=== PATIENT | male | born 1940 | race Caucasian/White ===

== ENCOUNTER 2020-04-15 23:12 | Observation (INO) | payer MEDICARE ==
[~2020-04-15] VITALS: Ht 162.6 cm; Wt 74.0 kg
--- NOTE | 2020-04-15 23:37 | REPVR ---
PROCEDURE INFORMATION: Exam: CT Head Without Contrast Exam date and time: 04/15/2020 11:25 PM Age: 79 years old Clinical indication: Weakness, extremity; Additional info: CVA TECHNIQUE: Imaging protocol: Computed tomography of the head without contrast. Radiation optimization: All CT scans at this facility use at least one of these dose optimization techniques: automated exposure control; mA and/or kV adjustment per patient size (includes targeted exams where dose is matched to clinical indication); or iterative reconstruction. Other technique: STROKE PROTOCOL was implemented. COMPARISON: No relevant prior studies available. FINDINGS: Brain: There are global involutional changes of the brain which are in keeping with the patient's age. Periventricular hypodensities are nonspecific but most likely reflect chronic microvascular ischemic disease. There is no evidence of intracranial hemorrhage. No abnormal extra-axial fluid collections are identified. No mass effect or midline shift is seen. Smith-white differentiation is preserved throughout. Cerebral ventricles: The ventricles are prominent but do not appear disproportionate to the sulci. Bones/joints: No calvarial fracture. Paranasal sinuses: There is a small air-fluid level in the right maxillary antrum. Consider acute bacterial sinusitis. Mastoid air cells: There is no mastoid effusion detected. Vasculature: Atherosclerotic vascular disease is noted at the level of the skull base. Soft tissues: Unremarkable. IMPRESSION: 1. No acute intracranial hemorrhage, mass or midline shift. 2. Involutional changes of the brain in keeping with the patient's age, with findings of chronic microvascular ischemic disease. 3. Consider acute bacterial sinusitis. ASSESSMENT: ASPECTS ([place] Stroke Program Early CT Score) is 10. Electronically signed by: Kalani Wiley On 04/15/2020 23:37:24 PM
[2020-04-16 00:45] LABS: BASO % 0.5 % (0.0-1.0); EOS % 0.5 % (0.0-3.0); HEMATOCRIT 37.3 % (42.0-52.0); LYMPH # 1.3 10^3/uL (1.5-5.0); LYMPH % 14.6 % (24.0-44.0); MEAN CORPUSCULAR HEMOGLOBIN 29.3 pg (27.0-33.0); MEAN CORPUSCULAR HGB CONC 32.2 g/dl (32.0-36.5); MONO # 0.7 10^3/uL (0.0-0.8); MONO % 7.7 % (0.0-8.0); NEUTROPHILS # 6.7 10^3/uL (1.5-8.5); NEUTROPHILS % 75.9 % (36.0-66.0); PLATELET COUNT, AUTOMATED 295 10^3/uL (150-450); WHITE BLOOD COUNT 8.8 10^3/uL (4.0-10.0)
--- NOTE | 2020-04-16 00:58 | REPVR ---
PROCEDURE INFORMATION: Exam: XR Chest, 1 View Exam date and time: 04/16/2020 12:31 AM Age: 79 years old Clinical indication: Other: CVA TECHNIQUE: Imaging protocol: XR of the chest Views: 1 view. COMPARISON: No relevant prior studies available. FINDINGS: Lungs: Unremarkable. No consolidation. Pleural spaces: There is a suspected right pneumothorax. Correlate with chest CT to confirm. No pleural effusion is seen. Heart/Mediastinum: Unremarkable. No cardiomegaly. Bones/joints: Unremarkable. IMPRESSION: Apparent right pneumothorax. Correlate with chest CT to confirm. Electronically signed by: Kalani Wiley On 04/16/2020 00:58:49 AM
[2020-04-16 01:20] LABS: BLOOD UREA NITROGEN 33 MG/DL (7-18); CALCIUM LEVEL 9.1 MG/DL (8.8-10.2); CARBON DIOXIDE LEVEL 26 MEQ/L (21-32); CHLORIDE LEVEL 101 MEQ/L (98-107); CK-MB VALUE MASS 1.7 NG/ML (<3.6); CPK CREATINE PHOSPHOKINASE 82 U/L (39-308); CREATININE FOR GFR 1.74 MG/DL (0.70-1.30); GLOMERULAR FILTRATION RATE 40.7 (>42); GLUCOSE, FASTING 124 MG/DL (70-100); MB/CK RELATIVE INDEX 2.07 (< OR =4); POTASSIUM SERUM 4.1 MEQ/L (3.5-5.1); SODIUM LEVEL 134 MEQ/L (136-145); TROPONIN I < 0.02 NG/ML (< 0.10)
[2020-04-16 01:23] LABS: RSV AMPLIFICATION NEGATIVE (NEGATIVE)
--- NOTE | 2020-04-16 02:24 | REPVR ---
PROCEDURE INFORMATION: Exam: CT Chest Without Contrast; Diagnostic Exam date and time: 04/16/2020 1:58 AM Age: 79 years old Clinical indication: Abnormal findings; Abnormal radiologic exam of lung or chest; Additional info: Ptx on cxr TECHNIQUE: Imaging protocol: Diagnostic computed tomography of the chest without contrast. 3D rendering (Not supervised by radiologist): MIP and/or 3D reconstructed images were created by the technologist. Radiation optimization: All CT scans at this facility use at least one of these dose optimization techniques: automated exposure control; mA and/or kV adjustment per patient size (includes targeted exams where dose is matched to clinical indication); or iterative reconstruction. COMPARISON: CR PORTABLE CHEST X-RAY 04/16/2020 12:16 AM FINDINGS: Lungs: Slight diffuse interstitial coarsening of the lungs with minimal left lower lobe infiltrate or atelectasis posteriorly. Numerous noncalcified bilateral pulmonary nodules measuring up to 11 mm. Pleural spaces: Unremarkable. No pneumothorax. No pleural effusion. Heart: Coronary artery calcifications are present. Pulmonary arteries: The main pulmonary artery measures 26 mm. Aorta: The ascending thoracic aorta measures 32 mm. Lymph nodes: Anterior mediastinal node anterior to the ascending thoracic aorta measuring 13 x 19 x 23 mm. Liver: Heterogeneous liver with suggestion of large masses in the right hepatic lobe. Bones/joints: Slight anterior wedge configuration of several mid to lower thoracic segments which appear to be chronic. No acute fracture. Soft tissues: Unremarkable. IMPRESSION: 1. Multiple noncalcified bilateral pulmonary nodules which are suspicious for metastatic disease.For patients at low risk (minimal or absent history of smoking and of other known risk factors), recommend CT Chest at 3-6 months, then consider CT Chest at 18-24 months. For patients at high risk (history of smoking or of other known risk factors), recommend CT Chest at 3-6 months, then CT Chest at 18-24 months. (Reference: Marguerite) 2. Heterogeneous liver with suggestion of large right hepatic masses which may reflect metastatic disease although primary hepatic mass is not excluded. 3. Slight pulmonary interstitial coarsening with minimal left lower lobe infiltrate or atelectasis. 4. Borderline anterior mediastinal node. REFERENCES: Marguerite Mehta et al. Guidelines for Management of Incidental Pulmonary Nodules Detected on CT Images: From the Fleischner Society 2017. Radiology. 2017;284(1):228-243. Electronically signed by: Leo Luke On 04/16/2020 02:23:56 AM
[2020-04-16] MEDS ORDERED: REDCAP13 PO (02:30)
[2020-04-16] MEDS ORDERED: BACL10TA8 PO (02:30)
[2020-04-16] MEDS ORDERED: ATEN50TA2 PO (02:30)
[2020-04-16] MEDS ORDERED: bumex PO (02:30)
[2020-04-16] MEDS ORDERED: CO Q1CAP2 PO (02:30)
[2020-04-16] MEDS ORDERED: LOSA100T50 PO (02:30)
[2020-04-16] MEDS ORDERED: GABA-1171 PO (02:30)
[2020-04-16] MEDS ORDERED: VITMTA PO (02:30)
[2020-04-16] MEDS ORDERED: BUME1TAB3 PO (04:13)
--- OUTSIDE RECORDS SUMMARY | 2020-04-16 04:40 | CCD | Continuity of Care Document ---
Author Author Chito CANCINO DPM-PC Organization Unknown Address [address] [place] [address] Phone [phone] Care Team Providers Care Mill Attendant Name Role Phone Aquilino Champagne MD AUTM [phone] Problems Active Problems Provider Date Atherosclerosis of arteries of the extremities JENN KimbleM-pc Onset: 07/21/2017 Onychomycosis JENN LojaMErinpc Onset: 07/21/2017 Pain in limb Kesha Loja Onset: 07/21/2017 Hammer toe GRISELDA Lojapc Onset: 07/21/2017 Callosity between toes GRISELDA Lojapc Onset: 018 Hallux valgus (acquired), unspecified foot Tee Loja-pc Onset: 07/21/2017 Peripheral vascular disease GRISELDA Lojapc Onset: Social History Type Date Description Comments Sex Unknown Tobacco Use Start: Unknown Never Smoked Cigarettes Tobacco Use Start: Unknown Never Smoked Cigars Tobacco Use Start: Unknown Never Smoked A Pipe Smoking Status Reviewed: 12/11/19 Never Smoked A Pipe Tobacco Use Start: Unknown Never Used Smokeless Tobacco ETOH Use Occasionally consumes alcohol Tobacco Use Start: Unknown End: Unknown Patient is a former smoker Allergies, Adverse Reactions, Alerts Active Allergies Reaction Severity Comments Date Sulfa Antibiotics Urticaria 07/21/2017 Hydrochlorothiazide / Lisinopril Urticaria 07/21/2017 Medications Active Medications SIG Qnty Indications Ordering Provide r Date Lac-Hydrin Twelve 12% Lotion apply to the feet twice a day daily 1200gm JENN LojaM-pc Multi-Vitamin Tablets 1 by mouth every day Unknown Losartan Potassium 100mg Tablets Take One AT Bedtime Unknown Baclofen 10mg Tablets take 1 tablet by mouth once daily at bedtime Unknown Gabapentin 100mg Capsules 2 tablets twice a day Unknown Atenolol 50mg Tablets 1 by mo uth bid Unknown Bumex 1mg Tablets 1 by nick th every day Unknown HM Coq-10 200mg Capsules Unknown Red Yeast Rice 600mg Capsules Unknown Immunizations Description No Information Available Vital Signs Date Vital Result Comment 07/20/2019 11:00am Weight 160.00 lb Weight 72.576 kg 07/21/2018 10:06am Weight 172.00 lb Weight 78.019 kg Height 66 inches 5'6" BMI (Body Mass Index) 27.8 kg/m2 BSA (Body Surface Area) 1.88 m2 Results Description No Information Available Procedures Date Code Description Status 12/11/2019 75747 Debridement Nails Any Method 6 O r More Completed 12/11/2019 91683 Pare Hyperkeratotic Lesion, 2-4 Completed 09/28/2019 21352 Debridement Nails Any Method 6 O r More Completed 09/28/2019 91435 Pare Hyperkeratotic Lesion, 2-4 Completed Medical Devices Description No Information Available Encounters Description No Information Available Assessments Date Code Description Provider 12/11/2019 I70.203 Unspecified atherosc lerosis of n[place] arteries of extremities, bilateral legs Radha Cancino DPM-ghazala 12/11/2019 M20.10 Hallux valgus (acquired), unspec ified foot Kesha Loja 12/11/2019 M20.40 Other hammer toe(s) (acquired), unspecified foot Kesha Loja 12/11/2019 B35.1 Tinea unguium Radha Cancino DPM- 12/11/2019 L84 Corns and callosities Kesha Conroy 09/28/2019 I70.203 Unspecified atherosc lerosis of nikolski arteries of extremities, bilateral legs GRISELDA Lojapc 09/28/2019 M20.10 Hallux valgus (acquired), unspec ified foot Kesha Loja 09/28/2019 M20.40 Other hammer toe(s) (acquired), unspecified foot Kesha Loja 09/28/2019 B35.1 Tinea unguium Kesha Loja 09/28/2019 L84 Corns and callosities Kesha Conroy Plan of Treatment Future Appointment(s):* 05/28/2020 11:00 am - Kesha Loja at [facility] Podiatry Functional Status Description No Information Available Mental Status Description No Information Available Referrals Description No Information Available
--- OUTSIDE RECORDS SUMMARY | 2020-04-16 04:40 | CCD | Continuity of Care Document ---
Author Author Chito FELIX Organization Unknown Address [address] [place] [id number] Phone [phone] Care Team Providers Care Ferryboat Helper Name Role Phone Giuseppe FELIX AUTM [phone] Social History Type Date Description Comments Sex Unknown Allergies, Adverse Reactions, Alerts Active Allergies Reaction Severity Comments Date Sulfa Antibiotics 03/18/2020 Statins 03/18/2020 Lisinopril 03/18/2020 Medications Active Medications SIG Qnty Indications Ordering Provide r Date Coq10 Maximum Strength 400mg Capsules Aquilino Champagne M[facility] 03/18/2020 Red Yeast Rice Extract 600mg Capsules Aquilino Champagne M[facility] 03/18/2020 Baclofen 10mg Tablets Take One Tablet By Mouth Daily 90tabs Aquilino Champagne [facility] 000 Atenolol 50mg Tablets Take One Tablet By Mouth Twice Daily 180tabs Aquilino Champagne M[facility] Gabapentin 100mg Capsules take two capsules by mouth twice a day 120caps Aquilino Champagne M[facility] Losartan Potassium 100mg Tablets [facility] Bumetanide 1mg Tablets TK 1 T PO qd Unknown Vital Signs Date Vital Result Comment 03/18/2020 1:35pm Height 66 inches 5'6" Weight 152.00 lb BMI (Body Mass Index) 24.5 kg/m2 Body Temperature 97.4 F BP Systolic 143 mmHg BP Diastolic 78 mmHg Heart Rate 63 /min O2 % BldC Oximetry 93 % Encounters Type Date Location Provider Dx Diagnosis Office Visit 03/18/2020 1:30p [facility] Aquilino Champagne M[facility] I11.9 Hypertensive heart disease without heart failure E78.5 Hyperlipidemia, unspecified G62.9 Polyneuropathy, unspecified G45.9 Transient cerebral ischemic attack, unspecified Office Visit 12/11/2019 11:30a [facility] Aquilino Champagne M[facility] I11.9 Hypertensive heart disease without heart failure I69.30 Unspecified sequelae of cere bral infarction G62.9 Polyneuropathy, unspecified Assessments Date Code Description Provider 03/18/2020 I11.9 Hypertensive heart disease witho ma heart failure Aquilino [facility]agne [facility] 03/18/2020 E78.5 Hyperlipidemia, unspecified Meli Champagne M[facility] 03/18/2020 G62.9 Polyneuropathy, unspecified Meli Champagne [facility] 03/18/2020 G45.9 Transient cerebral ischemic richa ck, unspecified Aquilino Champagne [facility] 12/11/2019 I11.9 Hypertensive heart disease witho ma heart failure Aquilino Champagne [facility] 12/11/2019 I69.30 Unspecified sequelae of cerebral infarction Aquilino Champagne [facility] 12/11/2019 G62.9 Polyneuropathy, unspecified Meli Champagne [facility] 09/28/2019 I11.9 Hypertensive heart disease witho ut heart failure Aquilino Champagne [facility] 09/28/2019 E78.5 Hyperlipidemia, unspecified Meli Champagne [facility] 09/28/2019 M54.5 Low back pain [facility] Plan of Treatment Future Appointment(s):* 05/28/2020 11:30 am - Aquilino Champagne M[facility] at [facility]
--- OUTSIDE RECORDS SUMMARY | 2020-04-16 04:40 | CCD | Continuity of Care Document ---
Author Author Chito FELIX Organization Unknown Address [address] [place] [id number] Phone [phone] Care Team Providers Care Farm Contractor Name Role Phone Giuseppe FELIX AUTM [phone] Social History Type Date Description Comments Sex [...] M.D. , P.C[facility] Losartan Potassium 100mg Tablets [facility] Bumetanide 1mg Tablets TK 1 T PO qd Unknown Vital Signs Date Vital Result Comment 03/18/2020 1:35pm Height 66 inches 5'6" Weight 152.00 lb BMI (Body Mass Index) 24.5 kg/m2 Body Temperature 97.4 F BP Systolic 143 mmHg BP Diastolic 78 mmHg Heart Rate 63 /min O2 % BldC Oximetry 93 % Encounters Type Date Location Provider Dx Diagnosis Office Visit 12/11/2019 11:30a [facility] Aquilino Champagne M[facility] I11.9 Hypertensive heart disease without heart failure I69.30 Unspecified sequelae of cere bral infarction G62.9 Polyneuropathy, unspecified Assessments Date Code Description Provider 12/11/2019 I11.9 Hypertensive heart disease witho mi heart failure Aquilino Champagne [facility] 12/11/2019 [...] am - Aquilino Champagne [facility] at [facility]
--- OUTSIDE RECORDS SUMMARY | 2020-04-16 04:41 | CCD ---
Author Author [facility] Organization [facility] Address Unknown Phone Unavailable Care Team Providers Care Data Capture Specialist Name Role Phone DEUCE CHAMPAGNE MD Unavailable Unavailable ORIANADEUCE MD Unavailable Unavailable DEUCE CHAMPAGNE MD Unavailable Unavailable ORIANADEUCE BRADLEY MD Unavailable Unavailable DEUCE CHAMPAGNE MD Unavailable Unavailable ORIANADEUCE Álvarez MD Unavailable Unavailable DEUCE CHAMPAGNE MD Unavailable Unavailable DEUCE CHAMPAGNE MD Unavailable Unavailable ORIANADEUCE Álvarez MD Unavailable Unavailable DEUCE CHAMPAGNE MD Unavailable Unavailable ORIANADEUCE MD Unavailable Unavailable ORIANAROBYN BRADLEYBOSAMEER العلي MD Unavailable Unavailable DEUCE CHAMPAGNE MD Unavailable Unavailable DEUCE CHAMPAGNE MD Unavailable Unavailable DEUCE CHAMPAGNE MD Unavailable Unavailable ORIANADEUCE BRADLEY MD Unavailable Unavailable ORIANADEUCE BRADLEY MD Unavailable Unavailable ORIANADEUCE BRADLEY MD Unavailable Unavailable ORIANADEUCE BRADLEY MD Unavailable Unavailable ORIANA, MAQBOOL ZOHRA MD Unavailable Unavailable ORIANA, MAQBOOL ZOHRA MD Unavailable Unavailable ORIANA, MAQBOOL ZOHRA MD Unavailable Unavailable ORIANA, MAQBOOL ZOHRA MD Unavailable Unavailable ORIANA, MAQBOOL ZOHRA MD Unavailable Unavailable ORIANA, MAQBOOL ZOHRA MD Unavailable Unavailable ORIANA, MAQBOOL ZOHRA MD Unavailable Unavailable ORIANA, MAQBOOL ZOHRA MD Unavailable Unavailable ORIANA, MAQBOOL ZOHRA MD Unavailable Unavailable ORIANA, MAQBOOL ZOHRA MD Unavailable Unavailable ORIANA, MAQBOOL ZOHRA MD Unavailable Unavailable ORIANA, MAQBOOL ZOHRA MD Unavailable Unavailable ORIANA, MAQBOOL ZOHRA MD Unavailable Unavailable ORIANA, MAQBOOL ZOHRA MD Unavailable Unavailable ORIANA, MAQBOOL ZOHRA MD Unavailable Unavailable ORIANA, MAQBOOL ZOHRA MD Unavailable Unavailable ORIANA, MAQBOOL ZOHRA MD Unavailable Unavailable ORIANA, MAQBOOL ZOHRA MD Unavailable Unavailable ORIANA, MAQBOOL ZOHRA MD Unavailable Unavailable ORIANA, MAQBOOL ZOHRA MD Unavailable Unavailable ORIANA, MAQBOOL ZOHRA MD Unavailable Unavailable ORIANA, MAQBOOL ZOHRA MD Unavailable Unavailable ORIANA, MAQBOOL ZOHRA MD Unavailable Unavailable ORIANA, MAQBOOL ZOHRA MD Unavailable Unavailable ORIANA, MAQBOOL ZOHRA MD Unavailable Unavailable ORIANA, MAQBOOL ZOHRA MD Unavailable Unavailable ORIANA, MAQBOOL ZOHRA MD Unavailable Unavailable ORIANA, MAQBOOL ZOHRA MD Unavailable Unavailable ORIANA, MAQBOOL ZOHRA MD Unavailable Unavailable ORIANA, MAQBOOL ZOHRA MD Unavailable Unavailable ORIANA, MAQBOOL ZOHRA MD Unavailable Unavailable ORIANA, MAQBOOL ZOHRA MD Unavailable Unavailable ORIANA, MAQBOOL ZOHRA MD Unavailable Unavailable ORIANA, MAQBOOL ZOHRA MD Unavailable Unavailable ORIANA, MAQBOOL ZOHRA MD Unavailable Unavailable ORIANA, MAQBOOL ZOHRA MD Unavailable Unavailable ORIANA, MAQBOOL ZOHRA MD Unavailable Unavailable ORIANA, MAQBOOL ZOHRA MD Unavailable Unavailable ORIANA, MAQBOOL ZOHRA MD Unavailable Unavailable ORIANA, MAQBOOL ZOHRA MD Unavailable Unavailable ORIANA, MAQBOOL ZOHRA MD Unavailable Unavailable ORIANA, MAQBOOL ZOHRA MD Unavailable Unavailable ORIANA, MAQBOOL ZOHRA MD Unavailable Unavailable ORIANA, MAQBOOL ZOHRA MD Unavailable Unavailable ORIANA, MAQBOOL ZOHRA MD Unavailable Unavailable ORIANA, MAQBOOL ZOHRA MD Unavailable Unavailable ORIANA, MAQBOOL ZOHRA MD Unavailable Unavailable ORIANA, MAQBOOL ZOHRA MD Unavailable Unavailable ORIANA, MAQBOOL ZOHRA MD Unavailable Unavailable ORIANA, MAQBOOL ZOHRA MD Unavailable Unavailable ORIANA, MAQBOOL ZOHRA MD Unavailable Unavailable ORIANA, MAQBOOL ZORHA MD Unavailable Unavailable ORIANA, MAQBOOL ZOHRA MD Unavailable Unavailable ORIANA, MAQBOOL ZOHRA MD Unavailable Unavailable ORIANA, MAQBOOL ZOHRA MD Unavailable Unavailable BARAK, J RADHA DPM PC Unavailable Unavailable BARAK, J RADHA DPM [facility] Unavailable Unavailable BARAK, J RADHA DPM [facility] Unavailable Unavailable BARAK, J RADHA D[facility] Unavailable Unavailable BARAK, J RADHA [facility] Unavailable Unavailable BARAK, J RADHA [facility] Unavailable Unavailable BARAK, J RADHA [facility] Unavailable Unavailable BARAK, J RADHA [facility] Unavailable Unavailable BARAK, J RADHA [facility] Unavailable Unavailable BARAK, J RADHA [facility] Unavailable Unavailable BARAK, J RADHA [facility] Unavailable Unavailable BARAK, J RADHA [facility] Unavailable Unavailable BARAK, J RADHA [facility] Unavailable Unavailable BARAK, J RADHA [facility] Unavailable Unavailable BARAK, J RADHA [facility] Unavailable Unavailable BARAK, J RADHA [facility] Unavailable Unavailable BARAK, J RADHA [facility] Unavailable Unavailable BARAK, J RADHA [facility] Unavailable Unavailable BARAK, J RADHA [facility] Unavailable Unavailable BARAK, J RADHA [facility] Unavailable Unavailable BARAK, J RADHA [facility] Unavailable Unavailable BARAK, J RADHA [facility] Unavailable Unavailable BARAK, J RADHA [facility] Unavailable Unavailable BARAK, J RAD[facility] Unavailable Unavailable BARAK, J RAD[facility] Unavailable Unavailable BARAK, J RADHA [facility] Unavailable Unavailable ORIANA, MAQBOOL ZOHRA MD Unavailable Unavailable ORIANA, MAQBOOL ZOHRA MD Unavailable Unavailable ORIANA, MAQBOOL ZOHRA MD Unavailable Unavailable ORIANA, MAQBOOL ZOHRA MD Unavailable Unavailable ORIANA, MAQBOOL ZOHRA MD Unavailable Unavailable ORIANA, MAQBOOL ZOHRA MD Unavailable Unavailable ORIANA, MAQBOOL ZOHRA MD Unavailable Unavailable ORIANA, MAQBOOL ZOHRA MD Unavailable Unavailable ORIANA, MAQBOOL ZOHRA MD Unavailable Unavailable ORIANA, MAQBOOL ZOHRA MD Unavailable Unavailable ORIANA, MAQBOOL ZOHRA MD Unavailable Unavailable ORIANA, MAQBOOL ZOHRA MD Unavailable Unavailable ORIANA, MAQBOOL ZOHRA MD Unavailable Unavailable ORIANA, MAQBOOL ZOHRA MD Unavailable Unavailable ORIANA, MAQBOOL ZOHRA MD Unavailable Unavailable ORIANA, MAQBOOL ZOHRA MD Unavailable Unavailable ORIANA, MAQBOOL ZOHRA MD Unavailable Unavailable ORIANA, MAQBOOL ZOHRA MD Unavailable Unavailable ORIANA, MAQBOOL ZOHRA MD Unavailable Unavailable ORIANA, MAQBOOL ZOHRA MD Unavailable Unavailable ORIANA, MAQBOOL ZOHRA MD Unavailable Unavailable ORIANA, MAQBOOL ZOHRA MD Unavailable Unavailable ORIANA, MAQBOOL ZOHRA MD Unavailable Unavailable ORIANA, MAQBOOL ZOHRA MD Unavailable Unavailable ORIANA, MAQBOOL ZOHRA MD Unavailable Unavailable ORIANA, MAQBOOL ZOHRA MD Unavailable Unavailable ORIANA, MAQBOOL ZOHRA MD Unavailable Unavailable ORIANA, MAQBOOL ZOHRA MD Unavailable Unavailable ORIANA, MAQBOOL ZOHRA MD Unavailable Unavailable ORIANA, MAQBOOL ZOHRA MD Unavailable Unavailable ORIANA, MAQBOOL ZOHRA MD Unavailable Unavailable ORIANA, MAQBOOL ZOHRA MD Unavailable Unavailable ORIANA, MAQBOOL ZOHRA MD Unavailable Unavailable ORIANA, MAQBOOL ZOHRA MD Unavailable Unavailable ORIANA, MAQBOOL ZOHRA MD Unavailable Unavailable ORIANA, MAQBOOL ZOHRA MD Unavailable Unavailable ORIANA, MAQBOOL ZOHRA MD Unavailable Unavailable ORIANA, MAQBOOL ZOHRA MD Unavailable Unavailable ORIANA, MAQBOOL ZOHRA MD Unavailable Unavailable ORIANA, MAQBOOL ZOHRA MD Unavailable Unavailable ORIANA, MAQBOOL ZOHRA MD Unavailable Unavailable ORIANA, MAQBOOL ZOHRA MD Unavailable Unavailable ORIANA, MAQBOOL ZOHRA MD Unavailable Unavailable ORIANA, MAQBOOL ZOHRA MD Unavailable Unavailable ORIANA, MAQBOOL ZOHRA MD Unavailable Unavailable ORIANA, MAQBOOL ZOHRA MD Unavailable Unavailable ORIANA, MAQBOOL ZOHRA MD Unavailable Unavailable ORIANA, MAQBOOL ZOHRA MD Unavailable Unavailable ORIANA, MAQBOOL ZOHRA MD Unavailable Unavailable ORIANA, MAQBOOL ZOHRA MD Unavailable Unavailable ORIANA, MAQBOOL ZOHRA MD Unavailable Unavailable ORIANA, MAQBOOL ZOHRA MD Unavailable Unavailable ORIANA, MAQBOOL ZOHRA MD Unavailable Unavailable ORIANA, MAQBOOL ZOHRA MD Unavailable Unavailable ORIANA, MAQBOOL ZOHRA MD Unavailable Unavailable ORIANA, MAQBOOL ZOHRA MD Unavailable Unavailable ORIANA, MAQBOOL ZOHRA MD Unavailable Unavailable ORIANA, MAQBOOL ZOHRA MD Unavailable Unavailable ORIANA, MAQBOOL ZOHRA MD Unavailable Unavailable ORIANA, MAQBOOL ZOHRA MD Unavailable Unavailable ORIANA, MAQBOOL ZOHRA MD Unavailable Unavailable ORIANA, MAQBOOL ZOHRA MD Unavailable Unavailable ORIANA, MAQBOOL ZOHRA MD Unavailable Unavailable ORIANA, MAQBOOL ZOHRA MD Unavailable Unavailable ORIANA, MAQBOOL ZOHRA MD Unavailable Unavailable ORIANA, MAQBOOL ZOHRA MD Unavailable Unavailable ORIANA, MAQBOOL ZOHRA MD Unavailable Unavailable ORIANA, MAQBOOL ZOHRA MD Unavailable Unavailable ORIANA, MAQBOOL ZOHRA MD Unavailable Unavailable ORIANA, MAQBOOL ZOHRA MD Unavailable Unavailable ORIANA, MAQBOOL ZOHRA MD Unavailable Unavailable ORIANA, MAQBOOL ZOHRA MD Unavailable Unavailable ORIANA, MAQBOOL ZOHRA MD Unavailable Unavailable ORIANA, MAQBOOL ZOHRA MD Unavailable Unavailable Re-disclosure Warning The records that you are about to access may contain information from federally-assisted alcohol or drug abuse programs. If such information is present, then the following federally mandated warning applies: This information has been disclosed to you from records protected by federal confidentiality rules (42 CFR part 2). The federal rules prohibit you from making any further disclosure of this information unless further disclosure is expressly permitted by the written consent of the person to whom it pertains or as otherwise permitted by 42 CFR part 2. A general authorization for the release of medical or other information is NOT sufficient for this purpose. The Federal rules restrict any use of the information to criminally investigate or prosecute any alcohol or drug abuse patient.The records that you are about to access may contain highly sensitive health information, the redisclosure of which is protected by Article 27-F of the [facility] Public Health law. If you continue you may have access to information: Regarding HIV / AIDS; Provided by facilities licensed or operated by the [facility] Office of Mental Health; or Provided by the [facility] Office for People With Developmental Disabilities. If such information is present, then the following [facility] mandated warning applies: This information has been disclosed to you from confidential records which are protected by state law. State law prohibits you from making any further disclosure of this information without the specific written consent of the person to whom it pertains, or as otherwise permitted by law. Any unauthorized further disclosure in violation of state law may result in a fine or long term sentence or both. A general authorization for the release of medical or other information is NOT sufficient authorization for further disc losure. Allergies and Adverse Reactions Type Description Substance Reaction Status Data Source(s ) Drug allergy LISINOPRIL LISINOPRIL RASH [facility] CLASS SULFA (sulfonamide) SULFA (sulfonamide) RASH, ENTIRE BODY [facility] Encounters Encounter Providers Location Date Indications Data Source(s ) Outpatient Attender: ZOHRA CHAMPAGNE MD [facility] 03/18 12:30:00 PM EST [facility] (Zohra Champagne MD) Outpatient Attender: RADHA CANCINO DPM PCConsultant: ZOHRA CHAMPAGNE MD 03/18/2020 11:09:00 AM EST - 03/18/2020 11:09:00 AM [facility] Outpatient Attender: ZOHRA CHAMPAGNE MD [facility] 12/10 11:30:00 AM EDT [facility] (Zohra Champagne MD) Outpatient Attender: RADHA CANCINO DPM PCConsultant: ZOHRA CHAMPAGNE MD 12/11/2019 10:39:00 AM EDT - 12/11/2019 10:39:00 AM [facility] Outpatient Attender: RADHA CANCINO DPM PCConsultant: ZOHRA CHAMPAGNE MD 09/28/2019 10:29:00 AM EDT - 09/28/2019 10:29:00 AM [facility] Outpatient Attender: RADHA CANCINO DPM PCConsultant: ZOHRA CHAMPAGNE MD 07/20/2019 10:58:00 AM EDT - 07/20/2019 10:58:00 AM [facility] Outpatient Attender: RADHA CANCINO DPM PCConsultant: ZOHRA CHAMPAGNE MD 05/11/2019 10:27:00 AM EDT - 05/11/2019 10:27:00 AM [facility] Outpatient Attender: RADHA BARAJASM PCConsultant: ZOHRA CHAMPAGNE MD 02/16/2019 10:25:00 AM EST - 02/16/2019 10:25:00 AM [facility] Outpatient Attender: ZOHRA CHAMPAGNE MDRef errer: ZOHRA CHAMPAGNE MDConsultant: ZOHRA CHAMPAGNE MD 01/23/2019 10:09:00 AM EST - 01/23/2019 10:19:00 AM [facility] Medications Medication Brand Name Start Date Product Form Dose Route Admi nistrative Instructions Pharmacy Instructions Status Indications Reaction Description Data Source(s) coenzyme Q10 400 MG Oral Capsule Coq10 Maximum Strength 03/01 12:00:00 AM EST active [facility] (Eugenie Champagne MD) red yeast rice 600 MG Oral Capsule Red Yeast Rice Extract 12:00:00 AM EST active [facility] (Eugenie Champagne MD) Insurance Providers Payer name Policy type / Coverage type Policy ID Covered green party ID Covered green party's relationship to caballero Policy Cab[employer]ero Plan Information [employer] [id number] SP [id number] [place] [id number] 18 [id number] WELLCARE -O/P [id number] 18 [id number] WELLCARE - PHYSICIAN [id number] 18 [id number] MEDICARE PART A [facility] [id number] 18 [id number] [employer] [place] [id number] 18 [id number] [employer] -O/P [id number] 18 [id number] MEDICARE PART A [place] [id number] 18 [id number] RALF PROG [employer] G [id number] Self [id number] [employer] -SWING [id number] 18 [id number] Problems, Conditions, and Diagnoses Code Display Name Description Problem Type Effective Dates Data Source(s) M2040 Other hammer toe(s) (acquired), unspecif ied foot Other hammer toe(s) (acquired), unspecified foot Diagnosis 12/11/2019 10:39:00 AM EDT [facility] M2010 Hallux valgus (acquired), unspecified fo ot Hallux valgus (acquired), unspecified foot Diagnosis 12/11/2019 10:39:00 AM EDT [facility] L84 Corns and callosities Corns and callosities Diagnosis 12/11/2019 10:39:00 AM EDT [facility] B351 Tinea unguium Tinea unguium Diagnosis 12/11/2019 10:39:00 AM EDT [facility] 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, bilateral legs Unspecified atherosclerosis of [place] ar teries of extremities, bilateral legs Diagnosis 12/11/2019 10:39:00 AM [facility] [id number] Pain in left foot Pain in left foot Diagnosis 02/16/2019 10:25:00 AM [facility] I739 Peripheral vascular disease, unspecified Peripheral vascular disease, unspecified Diagnosis 02/16/2019 10:25:00 AM [facility] Surgeries/Procedures Procedure Description Date Indications Data Source(s) Pare Hyperkeratotic Lesion, 2-4 12/11/2019 12:00:00 AM EDT [facility] ([facility]) Debridement Nails Any Method 6 Or More 12/11/2019 12:0 0:00 AM EDT [facility] ([facility]) Pare Hyperkeratotic Lesion, 2-4 09/28/2019 12:00:00 AM EDT [facility] ([facility]) Debridement Nails Any Method 6 Or More 09/28/2019 12:0 0:00 AM EDT [facility] ([facility]) Pare Hyperkeratotic Lesion, 2-4 07/20/2019 12:00:00 AM EDT [facility] ([facility]) Debridement Nails Any Method 6 Or More 07/20/2019 12:0 0:00 AM EDT [facility] ([facility]) Pare Hyperkeratotic Lesion, 2-4 05/11/2019 12:00:00 AM EDT [facility] ([facility]) Debridement Nails Any Method 6 Or More 05/11/2019 12:0 0:00 AM EDT [facility] ([facility]) Pare Hyperkeratotic Lesion, 2-4 02/16/2019 12:00:00 AM EST [facility] ([facility]) Debridement Nails Any Method 6 Or More 02/16/2019 12:0 0:00 AM EST [facility] ([facility]) Social History Code Duration Value Status Description Data Source(s ) Smoking 12/11/2019 12:00:00 AM EDT Never Smoked A Pipe complet ed Never Smoked A Pipe [facility] ([facility]) Vital Signs ID Date Data Source UNK Name Value Range Interpretation Code Description Data Source(s) Oxygen saturation in Arterial blood by Pulse oximetry 93 % 93 % [facility] (Zohra Champagne MD) Heart rate 63 /min 63 /min [facility] (Zohra Champagne MD) Diastolic blood pressure 78 mm[Hg] 78 mm[Hg] [facility] (Zohra Champagne MD) Systolic blood pressure 143 mm[Hg] 143 mm[Hg] M [facility] (Zohra Champagne MD) Body temperature 97.4 [degF] 97.4 [degF] [facility] (Zohra Champagne MD) Body mass index (BMI) [Ratio] 24.5 kg/m2 24.5 k g/m2 [facility] (Zohra Champagne MD) Body weight 152.00 [lb_av] 152.00 [lb_av] MED[facility] T (Zohra Champagne MD) Body height 66 [in_i] 66 [in_i] [facility] (Zohra Champagne MD) 5'6" Body weight 72.576 kg 72.576 kg [facility] ([facility]) Body weight 160.00 [lb_av] 160.00 [lb_av] BRITTNY Veronica ([facility])
[2020-04-16] MEDS ORDERED: ROSUVASTATIN 10 MG TAB (CRESTOR) PO ONE (04:45)
--- OUTSIDE RECORDS SUMMARY | 2020-04-16 04:45 | CCD ---
Author Author [facility] Organization [facility] Address Unknown Phone Unavailable Care Team Providers Care Machine Setter And Repairer Name Role Phone DEUCE CHAMPAGNE MD Unavailable [...] MAQBOOL ZOHRA MD Unavailable Unavailable ORIANA, MAQBOOL ZHORA MD Unavailable Unavailable ORIANA, MAQBOOL ZOHRA MD [...] is protected by Article 27-F of the [facility] [place] Public Health law. If you continue you may have access to information: Regarding HIV / AIDS; Provided by facilities licensed or operated by the [facility] [place] Office of Mental Health; or Provided by the [facility] [place] Office for People With Developmental Disabilities. If such information is present, then the following [facility] [place] mandated warning applies: This information has been [...] law may result in a fine or fdc sentence or both. A general authorization for the release of medical or other information is NOT sufficient authorization for further disc losure. Allergies and Adverse Reactions Type Description Substance Reaction Status Data Source(s ) Drug allergy LISINOPRIL LISINOPRIL RASH [facility] CLASS SULFA (sulfonamide) SULFA (sulfonamide) RASH, ENTIRE BODY [facility] Encounters Encounter Providers Location Date Indications Data Source(s ) Outpatient Attender: ZOHRA CHAMPAGNE MD [facility] 03/18 12:30:00 PM EST [facility] (Zohra Champagne MD) Outpatient Attender: RADHA CANCINO DPM PCConsultant: ZOHRA CHAMPAGNE MD 03/18/2020 11:09:00 AM EST - 03/18/2020 11:09:00 AM [facility] Outpatient Attender: ZOHRA CHAMPAGNE MD [facility] 12/10 11:30:00 AM EDT [facility] (Zohra Champagne MD) Outpatient Attender: RADHA CANCINO DPM PCConsultant: ZOHRA CHAMPAGNE MD 12/11/2019 10:39:00 AM EDT - 12/11/2019 10:39:00 AM [facility] Outpatient Attender: RADHA CANCINO DPM PCConsultant: ZOHRA CHAMPAGNE MD 09/28/2019 10:29:00 AM EDT - 09/28/2019 10:29:00 AM [facility] Outpatient Attender: RADHA CANCINO DPM PCConsultant: ZOHRA CHAMPAGNE MD 07/20/2019 10:58:00 AM EDT - 07/20/2019 10:58:00 AM [facility] Outpatient Attender: RADHA CANCINO DPM PCConsultant: ZOHRA CHAMPAGNE MD 05/11/2019 10:27:00 AM EDT - 05/11/2019 10:27:00 AM [facility] Outpatient Attender: RADHA BARAJASM PCConsultant: ZOHRA CHAMPAGNE MD 02/16/2019 10:25:00 AM EST - 02/16/2019 10:25:00 AM [facility] Outpatient Attender: ZOHRA CHAMPAGNE MDRef errer: ZOHRA CHAMPAGNE MDConsultant: ZOHRA CHAMPAGNE MD 01/23/2019 10:09:00 AM EST - 01/23/2019 10:19:00 AM [facility] Medications Medication Brand Name Start Date [...] type / Coverage type Policy ID Covered libertarian ID Covered libertarian's relationship to caballero Policy [employer]ero Plan Information [employer] [id number] SP [id number] [employer] [id number] 18 [id number] WELLCARE -O/P [id number] 18 [id number] WELLCARE - PHYSICIAN [id number] 18 [id number] MEDICARE PART A [facility] [id number] 18 [id number] [employer] [id number] 18 [id number] [employer] -O/P [id number] 18 [id number] MEDIC[place] PART [place] [id number] 18 [id number] RALF PROG [employer] G [id number] Self [id number] [employer] -SWING [id number] 18 [id number] Problems, Conditions, and Diagnoses Code Display Name Description Problem Type Effective Dates Data Source(s) M2040 Other hammer toe(s) (acquired), unspecif ied foot Other hammer toe(s) (acquired), unspecified foot Diagnosis 12/11/2019 10:39:00 AM EDT [facility] M2010 Hallux valgus (acquired), unspecified fo ot Hallux valgus (acquired), unspecified foot Diagnosis 12/11/2019 10:39:00 AM EDT [facility] L84 Corns and callosities Corns and callosities Diagnosis 12/11/2019 10:39:00 AM EDT [facility] B351 Tinea unguium Tinea unguium Diagnosis 12/11/2019 10:39:00 AM EDT [facility] [id number] Unspecified atherosclerosis of [place] arteries of extremities, bilateral legs Unspecified atherosclerosis of [place] ar teries of extremities, bilateral legs Diagnosis 12/11/2019 10:39:00 AM [facility] [id number] Pain in left foot Pain in left foot Diagnosis 02/16/2019 10:25:00 AM [facility] I739 Peripheral vascular disease, unspecified Peripheral vascular disease, unspecified Diagnosis 02/16/2019 10:25:00 AM [facility] Surgeries/Procedures Procedure Description Date Indications Data Source(s) Pare Hyperkeratotic Lesion, 2-4 12/11/2019 12:00:00 AM EDT [facility] ([facility]) Debridement Nails Any Method 6 Or More 12/11/2019 12:0 0:00 AM EDT [facility] ([facility]) Pare Hyperkeratotic Lesion, 2-4 09/28/2019 12:00:00 AM EDT [facility] ([facility]) Debridement Nails Any Method 6 Or More 09/28/2019 12:0 0:00 AM EDT [facility] ([facility]) Pare Hyperkeratotic Lesion, 2-4 07/20/2019 12:00:00 AM EDT [facility] ([facility]) Debridement Nails Any Method 6 Or More 07/20/2019 12:0 0:00 AM EDT [facility] ([facility]) Pare Hyperkeratotic Lesion, 2-4 05/11/2019 12:00:00 AM EDT [facility] ([facility]) Debridement Nails Any Method 6 Or More 05/11/2019 12:0 0:00 AM EDT [facility] ([facility]) Pare Hyperkeratotic Lesion, 2-4 02/16/2019 12:00:00 AM EST [facility] ([facility]) Debridement Nails Any Method 6 Or More 02/16/2019 12:0 0:00 AM EST [facility] ([facility]) Social History Code Duration Value Status Description Data Source(s ) Smoking 12/11/2019 12:00:00 AM EDT Never Smoked A Pipe complet ed Never Smoked A Pipe [facility] ([facility]) Vital Signs ID Date Data Source [...] Body weight 72.576 kg 72.576 kg [facility] ([facility]) Body weight 160.00 [lb_av] 160.00 [lb_av] BRITTNY Veronica ([facility])
[2020-04-16 05:11] LABS: CHOLESTEROL LEVEL 230 MG/DL (<200); CHOLESTEROL RISK RATIO 6.388 (<5); HDL CHOLESTEROL 36 MG/DL (>40); LDL CHOLESTEROL 141 MG/DL (<100); NON-HDL-C 194 MG/DL; TRIGLYCERIDES LEVEL 263 MG/DL (<150)
[2020-04-16] MEDS ORDERED: NS 1,000 ML IV SCH (05:15)
[2020-04-16] MEDS ORDERED: ASPIRIN 81 MG CHEW TABLET PO ONE (05:15)
[2020-04-16 05:19] LABS: HEMOGLOBIN A1c 5.7 %
--- NOTE | 2020-04-16 05:29 | HPEPDOC ---
General Date of Admission Apr 15, 2020 at 23:13 Date of Service: Apr 16, 2020 Chief Complaint The patient is a 79-year-old male admitted with a reason for visit of TIA. 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 Today, he had slurred speech and left leg weakness. Symptoms lasted for about 2 hours before respolving. He reported that he last felt normal around noon time on 04/15/2020. He denies any other numbness, tingling, loss of sensation, facial droopiness, blurry vision/double vision, or other extremity weakness. Patient reported that his only sequelae from prior hemorrhagic stroke was gait imbalance and he needs to use a cane to walk. He denies any symptoms now other than the chronic right eye blurriness which he attributed to cataract and his chronic gait imbalance.Denies any chest pain, palpitation, dyspnea, nausea, or vomiting. Home Medications Scheduled Atenolol (Atenolol) 50 Mg Tablet, 50 MG PO QPM, (Reported) Baclofen (Baclofen) 10 Mg Tablet, 10 MG PO QHS, (Reported) Bumetanide (Bumetanide) 1 Mg Tablet, 1 MG PO DAILY, (Reported) Gabapentin (Gabapentin) 100 Mg Capsule, 100 MG PO BID, (Reported) Losartan Potassium (Losartan Potassium) 100 Mg Tablet, 100 MG PO DAILY, (Reported) Multivitamins (Thera M Plus Tablet) 1 Each Tablet, 1 TAB PO DAILY, (Reported) Red Yeast Rice (Red Yeast Rice) 600 Mg Capsule, 600 MG PO DAILY, (Reported) Ubidecarenone (Co Q-10) 200 Mg Capsule, 200 MG PO DAILY, (Reported) Allergies Coded Allergies: Sulfa (Sulfonamide Antibiotics) (Verified Allergy, Intermediate, rash, 04/16/20) atorvastatin (Verified Allergy, Intermediate, leg cramps, 04/16/20) ezetimibe (Verified Allergy, Intermediate, leg cramps, 04/16/20) lisinopril (Verified Allergy, Intermediate, rash, 04/16/20) Past Medical History Medical History hemorrhagic stroke-2 years ago right eye cataract ? Hypertension Surgical History Left pinky surgery Family History Brother has stomach cancer Social History * Smoker: former Smoker (Quit 2 years ago) Alcohol: other (drinks 2 drinks per day, denies binge drinking behavior) A-FIB/CHADSVASC A-FIB History Current/History of A-Fib/PAF?: No Review of Systems Constitutional: Denies: Chills, Fever Eyes: Reports: Other (chronic right eye blurriness) ENT: Denies: Dysphagia Skin: Reports: Bruising Pulmonary: Denies: Dyspnea Cardiovascular: Denies: Chest Pain, Palpitations Gastrointestinal: Denies: Nausea, Vomiting, Abdominal Pain, Diarrhea, Constipation, Hematochezia Genitourinary: Denies: Dysuria, Frequency Hematologic: Reports: Bruising Neurological: Reports: Weakness (Left lower extremity weakness, resolved), Other Symptoms (Chronic gait imbalance); Denies: Numbness, Change in speech Physical Examination General Exam: Positive: Alert, No Acute Distress Eye Exam: Positive: Conjunctiva & lids normal, EOMI ENT Exam: Positive: Atraumatic Neck Exam: Positive: Supple Chest Exam: Positive: Clear to auscultation, Normal air movement; Negative: Rales, Rhonchi, Wheezing Heart Exam: Positive: Rate Normal, Regular Rhythm Abdomen Exam: Positive: Normal bowel sounds, Soft; Negative: Tenderness Skin Exam: Positive: Nl turgor and temperature Neuro Exam: Positive: Normal Speech, Strength at 5/5 X4 ext, Normal Tone Psych Exam: Positive: Mood NL, Oriented x 3 Vital Signs Vital Signs Date Time Temp Pulse Resp B/P (MAP) Pulse Ox O2 Delivery O2 Flow Rate FiO2 04/16/20 05:04 72 94 04/16/20 05:00 118/60 (79) 04/15/20 23:22 98.3 32 Laboratory Data Labs 24H Laboratory Tests 2 04/16/20 00:33: Coronavirus (COVID-19)(PCR) NEGATIVE, Influenza Type A (RT-PCR) NEGATIVE, Influenza Type B (RT-PCR) NEGATIVE, Respiratory Syncytial Virus (PCR) NEGATIVE 04/16/20 00:39: Immature Granulocyte % (Auto) 0.8, Neutrophils (%) (Auto) 75.9H, Lymphocytes (%) (Auto) 14.6L, Monocytes (%) (Auto) 7.7, Eosinophils (%) (Auto) 0.5, Basophils (%) (Auto) 0.5, Neutrophils # (Auto) 6.7, Lymphocytes # (Auto) 1.3L, Monocytes # (Auto) 0.7, Eosinophils # (Auto) 0.0, Basophils # (Auto) 0.0, Nucleated Red Blood Cells % (auto) 0.0, Activated Partial Thromboplast Time 33.3, Anion Gap 7L, Glomerular Filtration Rate 40.7L, Calcium Level 9.1, Total Creatine Kinase 82, Creatine Kinase MB 1.7, Creatine Kinase MB Relative Index 2.07, Troponin I < 0.02, Triglycerides Level 263H, Total Cholesterol 230H, LDL Cholesterol 141H, Non-HDL Cholesterol (LDL + VLDL) 194, Total HDL Cholesterol 36L, Cholesterol/HDL Ratio 6.388H 04/16/20 01:00: Bedside Glucose (Misc Panel) 116H CBC/BMP Laboratory Tests 04/16/20 00:39 Assessment/Plan 1. TIA -left lower extremity weakness on 04/15/2020 evening, reported lasting for 2 hours then resolved -CT head showed no acute abnormalities -Aspirin 324mg, high dose statin, NPO except for meds -bedside speech eval, PT eval -Neuro checks, fall precaution, seizure precaution -carotid US, echo. Left hand Xray ordered given hx of left pinky surgery noted however patient denied any surgery history. MRI head ordered but noted to perform only if no metals noted on left hand X ray -CTA head was ordered but per CT department patient is not able to receive contrast due to creatinine value; will reschedule to after 4 PM today 2. NASREEN -no hx of CKD noted, creatinine elevated. -creatinine 1.74 -start IV NS, repeat BMP 3. Multiple bilateral pulmonary nodules, likely 2/2 malignancy -Multiple bilateral pulmonary nodules which are suspicious for metastatic disease was noted on CT chest -consider pulm referral/outpatient follow up 4. Large hepatic mass questionable for metastatic disease vs primary hepatic mass -Heterogeneous liver with suggestion of large right hepatic masses, which may reflect metastatic disease was noted on CT chest -consider MRI abd/pelvis DVT prophylaxis: lovenox Plan / VTE VTE Prophylaxis Ordered?: Yes GME ATTESTATION GME ATTESTATION My faculty preceptor for this patient encounter was physically present during the encounter and was fully available. All aspects of the patient interview, examination, medical decision making process, and medical care plan development were reviewed and approved by the faculty preceptor. The faculty preceptor is aware and concurs with the plan as stated in the body of this note and will attest to such by his/her cosignature. ATTENDING NOTE I, Colleen Trevino DO, performed a history and physical examination of the patient and discussed his management with the resident, Sandra Argueta DO. I reviewed the resident's note and agree with the documented findings and plan of care. SANDRA ARGUETA DO Apr 16, 2020 05:29 COLLEEN TREVINO DO Apr 16, 2020 08:25
--- NOTE | 2020-04-16 06:06 | REPVR ---
PROCEDURE INFORMATION: Exam: XR Left Hand Exam date and time: 04/16/2020 4:59 AM Age: 79 years old Clinical indication: Screening exam; R/O metal implants; Prior surgery; Surgery date: 6+ months; Surgery type: Left pinky surgery; Additional info: Need brain mri. R/O metal implants, HX of left pinky surgery TECHNIQUE: Imaging protocol: XR Left hand. Views: 1 or 2 views. COMPARISON: No relevant prior studies available. FINDINGS: Bones/joints: Old healed fracture deformity of the proximal phalanx. Degenerative changes. 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 Soft tissues: Metallic ring at the base of the 4th finger. No other radiopaque foreign bodies in the field of view. IMPRESSION: Metallic ring at the base of the 4th finger. No other radiopaque foreign bodies in the field of view. Electronically signed by: Robert Davis On 04/16/2020 06:06:13 AM
[2020-04-16 07:21] LABS: BASO % 0.5 % (0.0-1.0); EOS # 0.1 10^3/uL (0.0-0.5); EOS % 0.6 % (0.0-3.0); HEMATOCRIT 37.4 % (42.0-52.0); HEMOGLOBIN 11.5 g/dl (13.5-17.5); LYMPH # 1.6 10^3/uL (1.5-5.0); LYMPH % 20.1 % (24.0-44.0); MEAN CORPUSCULAR HEMOGLOBIN 28.4 pg (27.0-33.0); MEAN CORPUSCULAR HGB CONC 30.7 g/dl (32.0-36.5); MEAN CORPUSCULAR VOLUME 92.3 fl (80.0-96.0); MONO # 0.7 10^3/uL (0.0-0.8); MONO % 8.4 % (2.0-8.0); NEUTROPHILS # 5.5 10^3/uL (1.5-8.5); NEUTROPHILS % 69.8 % (36.0-66.0); PLATELET COUNT, AUTOMATED 300 10^3/uL (150-450); RED BLOOD COUNT 4.05 10^6/uL (4.30-6.10); WHITE BLOOD COUNT 7.8 10^3/uL (4.0-10.0)
[2020-04-16 07:40] LABS: INR 1.01; PROTHROMBIN TIME 13.5 SECONDS (12.5-14.3)
[2020-04-16 08:00] LABS: BLOOD UREA NITROGEN 32 MG/DL (7-18); CALCIUM LEVEL 8.4 MG/DL (8.8-10.2); CARBON DIOXIDE LEVEL 26 MEQ/L (21-32); CHLORIDE LEVEL 105 MEQ/L (98-107); CK-MB VALUE MASS 1.3 NG/ML (<3.6); CPK CREATINE PHOSPHOKINASE 108 U/L (39-308); CREATININE FOR GFR 1.56 MG/DL (0.70-1.30); GLOMERULAR FILTRATION RATE 46.2 (>42); GLUCOSE, FASTING 97 MG/DL (70-100); POTASSIUM SERUM 4.6 MEQ/L (3.5-5.1); SODIUM LEVEL 140 MEQ/L (136-145); TROPONIN I < 0.02 NG/ML (< 0.10)
--- NOTE | 2020-04-16 08:20 | REP ---
INDICATION: TIA COMPARISON: None. TECHNIQUE: Smith scale and color Doppler evaluation using linear high frequency transducer Findings: FINDINGS: Two-dimensional smith scale and color images demonstrate minimal mixed atheromatous plaquing without narrowing/stenosis or occlusion. Normal laminar flow noted. Color Doppler interrogation demonstrates normal arterial wave patterns and velocities with no significant spectral broadening. Normal flow direction is appreciated in the bilateral vertebral arteries. ICA peak systolic velocity: Right 92.2 cm/s; Left 69.0 cm/s ICA diastolic velocity: Right 15.5 cm/s; Left 17.6 cm/s ECA peak systolic velocity: Right 137 cm/s; Left 110 cm/s CCA peak systolic velocity: Right 81.4 cm/s; Left 90.1 cm/s ICA/CCA ratio: Right 1.13 cm/s; Left 0.77 cm/s IMPRESSION: No hemodynamically significant areas of narrowing or stenosis appreciated. Based on set standards narrowing falls within the less than 50% range. <Electronically signed by Chilo Frazier > 04/16/20 [id number]
[2020-04-16 08:47] VITALS: BP 143/67
[2020-04-16] MEDS ORDERED: ENOXAPARIN 40MG/0.4ML SYRINGE (J1650 PER 10MG) SC SCH (09:00)
[2020-04-16] MEDS ORDERED: MULTIVITAMINS/MINERALS THERAP 1 TAB PO SCH (09:00)
--- NOTE | 2020-04-16 09:04 | REP ---
INDICATION: LIVER MASS COMPARISON: None TECHNIQUE: Axial noncontrast images from the lung bases to the pubic symphysis with coronal and sagittal reformations. This CT examination was performed using the following dose reduction techniques: Automated exposure control, adjustment of mA and/or kv according to the patient's size, and use of iterative reconstruction technique. FINDINGS: Lung bases demonstrate chronic emphysematous changes with innumerable scattered bilateral nodules up to 12 mm and most consistent with metastasis. The liver is markedly enlarged and there appears to be a mass lesion involving the right lobe with central stellate appearance. Lymph nodes in the region of the preston hepatis and right upper quadrant cannot be excluded. Spleen, pancreas, gallbladder, bilateral adrenal glands and kidneys are relatively normal for noncontrast evaluation. Atherosclerotic changes to the aorta and branch vessels including renovascular calcifications are identified without evidence for aneurysm. The enteric system is without obstruction or obvious acute inflammatory process. Diffuse diverticulosis noted. Normal terminal ileum and appendix identified in the right lower quadrant. Pelvis demonstrates normal bladder and age-appropriate prostate/seminal vesicles with coarse parenchymal calcifications noted. Incomplete evaluation of the scrotum suggest bilateral hydroceles. No ascites. No free air. Musculoskeletal structures demonstrate degenerative changes without focal osseous abnormality. IMPRESSION: 1. Innumerable metastatic appearing pulmonary nodules with underlying chronic emphysematous disease. 2. Hepatomegaly with large right lobe hepatic mass. 3. Diverticulosis. <Electronically signed by Chilo Frazier > 04/16/20 0900
--- NOTE | 2020-04-16 11:31 | DS.PDOC ---
Discharge Summary General Date of Admission Apr 15, 2020 at 23:13 Date of Discharge 04/16/20 PT REFUSED FURTHER EVALUATION FOR HIS LIVER MASS WITH [id number] METS,REFUSED LIVER BIOPSY,AND REQUESTED DISCHARGE HOME. Discharge Summary DICTATED SUMMARY JOB # Jose A FIELDS FOR DETAILS Vital Signs/I&Os Vital Signs Date Time Temp Pulse Resp B/P (MAP) Pulse Ox O2 Delivery O2 Flow Rate FiO2 04/16/20 08:51 98.5 04/16/20 08:47 78 143/67 (92) 98 04/16/20 07:47 16 Nasal Cannula 2.0 Laboratory Data Labs 24H Laboratory Tests 2 04/16/20 00:33: Estimated Mean Plasma Glucose 117H, Hemoglobin A1c 5.7, Coronavirus (COVID- 19)(PCR) NEGATIVE, Influenza Type A (RT-PCR) NEGATIVE, Influenza Type B (RT-PCR) NEGATIVE, Respiratory Syncytial Virus (PCR) NEGATIVE 04/16/20 00:39: Immature Granulocyte % (Auto) 0.8, Neutrophils (%) (Auto) 75.9H, Lymphocytes (%) (Auto) 14.6L, Monocytes (%) (Auto) 7.7, Eosinophils (%) (Auto) 0.5, Basophils (%) (Auto) 0.5, Neutrophils # (Auto) 6.7, Lymphocytes # (Auto) 1.3L, Monocytes # (Auto) 0.7, Eosinophils # (Auto) 0.0, Basophils # (Auto) 0.0, Nucleated Red Blood Cells % (auto) 0.0, Activated Partial Thromboplast Time 33.3, Anion Gap 7L, Glomerular Filtration Rate 40.7L, Calcium Level 9.1, Total Creatine Kinase 82, Creatine Kinase MB 1.7, Creatine Kinase MB Relative Index 2.07, Troponin I < 0.02, Triglycerides Level 263H, Total Cholesterol 230H, LDL Cholesterol 141H, Non-HDL Cholesterol (LDL + VLDL) 194, Total HDL Cholesterol 36L, Cholesterol/HDL Ratio 6.388H 04/16/20 01:00: Bedside Glucose (Misc Panel) 116H 04/16/20 07:11: Immature Granulocyte % (Auto) 0.6, Neutrophils (%) (Auto) 69.8H, Lymphocytes (%) (Auto) 20.1L, Monocytes (%) (Auto) 8.4H, Eosinophils (%) (Auto) 0.6, Basophils (%) (Auto) 0.5, Neutrophils # (Auto) 5.5, Lymphocytes # (Auto) 1.6, Monocytes # (Auto) 0.7, Eosinophils # (Auto) 0.1, Basophils # (Auto) 0.0, Nucleated Red Blood Cells % (auto) 0.0, Anion Gap 9, Glomerular Filtration Rate 46.2, Calcium Level 8.4L, Total Creatine Kinase 108, Creatine Kinase MB 1.3, Creatine Kinase MB Relative Index 1.20, Troponin I < 0.02, Prothrombin Time 13.5, Prothromb Time International Ratio 1.01 CBC/BMP Laboratory Tests 04/16/20 00:39 04/16/20 07:11 FSBS Laboratory Tests Test 04/16/20 01:00 Range/Units Bedside Glucose (Misc Panel) 116 83-110 MG/DL Discharge Medications Scheduled Atenolol (Atenolol) 50 Mg Tablet, 50 MG PO QPM, (Reported) Baclofen (Baclofen) 10 Mg Tablet, 10 MG PO QHS, (Reported) Bumetanide (Bumetanide) 1 Mg Tablet, 1 MG PO DAILY, (Reported) Gabapentin (Gabapentin) 100 Mg Capsule, 100 MG PO BID, (Reported) Losartan Potassium (Losartan Potassium) 100 Mg Tablet, 100 MG PO DAILY, (Reported) Multivitamins (Thera M Plus Tablet) 1 Each Tablet, 1 TAB PO DAILY, (Reported) Red Yeast Rice (Red Yeast Rice) 600 Mg Capsule, 600 MG PO DAILY, (Reported) Ubidecarenone (Co Q-10) 200 Mg Capsule, 200 MG PO DAILY, (Reported) Allergies Coded Allergies: Sulfa (Sulfonamide Antibiotics) (Verified Allergy, Intermediate, rash, 04/16/20) atorvastatin (Verified Allergy, Intermediate, leg cramps, 04/16/20) ezetimibe (Verified Allergy, Intermediate, leg cramps, 04/16/20) lisinopril (Verified Allergy, Intermediate, rash, 04/16/20) RHEA BROWN MD Apr 16, 2020 11:30
--- NOTE | 2020-04-16 11:54 | DSES ---
DISCHARGE SUMMARY DATE OF ADMISSION: 04/15/2020 DATE OF DISCHARGE: 04/16/2020 HISTORY: Patient refused further workup regarding his liver mass with pulmonary metastasis. DISCHARGE DIAGNOSIS: 1. 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 2. Left leg weakness, rule out metastatic disease of the brain. 3. History of hemorrhagic CVA. 4. Hypertension. 5. Right eye cataract surgery. 6. Acute bacterial sinusitis. 7. Chronic emphysema. 8. Diverticulosis. 9. Hepatomegaly. 10.Anemia of chronic disease. 11.Hyponatremia. 12.Acute on chronic renal failure. 13.Hypertriglyceridemia. DISCHARGE MEDICATIONS: 1. Atenolol 50 mg daily. 2. Baclofen 10 mg q.h.s. 3. Bumex 1 mg daily. 4. Gabapentin 100 mg b.i.d. 5. Losartan 100 daily. 6. Multivitamin one tablet daily. 7. Red yeast rice 600 mg daily. 8. Co-Enzyme Q10 200 mg daily. 9. Amoxicillin 50 mg bid x 10 days 10. Bacid 1 tab w meals x 10 days HOSPITAL COURSE: This is a 79-year-old male who presented to the Emergency Room with complaints of left leg weakness that occurred around 9:30 p.m. on 04/15/2020 without any paresthesias, tingling, facial droopiness which lasted for two hours. Patient did have a prior history of a hemorrhagic stroke and gait imbalance in the past and uses a cane at baseline. In the ER, he was normotensive. Blood pressure was 118/60 with resolution of his symptoms. CT of the head on 04/15/2020 showed no acute intracranial hemorrhage, mass or midline effect, involutional changes of the brain in keeping with his age with findings of chronic microvascular ischemic change and possible acute bacterial sinusitis. Chest x-ray showed apparent right pneumothorax, confirm with chest CT. Chest CT on 04/16/2020 showed multiple non-calcified bilateral pulmonary nodules suspicious for metastatic disease, recommend repeat CT at three to six month time, heterogenous liver would suggest right lobe hepatic mass which may reflect metastatic disease, although primary hepatic mass is not excluded, slight pulmonary interstitial coarsening with minimal left lower lobe infiltrate or atelectasis, borderline anterior mediastinal node. No pneumothorax. Carotid Doppler showed no hemodynamically significant areas of narrowing or stenosis. Left hand x-ray shows a metallic ring at the base of the fourth finger, no other radiopaque foreign bodies in the field of view. CT of the abdomen and pelvis on 04/16/2020: Innumerable metastatic appearing pulmonary nodules with underlying chronic emphysema, hepatomegaly with right large lobe hepatic mass, diverticulosis. The patient refused further evaluation and management of his large right liver mass with metastatic disease to the lungs. He was agreeable to proceed with CT of abdomen and pelvis. The patient's daughter was in agreement with the patient's decision to not have any further workup and management despite malignancy and with worsening metastatic disease. PHYSICAL EXAMINATION: VITAL SIGNS: On discharge, temperature 98.5, pulse 78, respiratory rate 16, blood pressure 143/67, 98% on 2 liters nasal cannula. GENERAL: The patient is awake, alert and oriented to person, place and time. HEENT: Face is symmetric. Tongue is midline. No jaundice or icterus. Dry mucous membranes. LUNGS: Clear to auscultation. No wheezes, rales or rhonchi. HEART: S1 and S2, sinus rhythm. ABDOMEN: Soft, nontender and nondistended. Positive bowel sounds x4 quadrants. EXTREMITIES: No cyanosis, clubbing or pitting edema. NEUROLOGIC: Motor function is 5/5 x4 extremities. Face is symmetric. No dysmetria on [id number] testing. Negative Babinski of bilateral lower extremities. LABORATORY DATA: On discharge, white count was 7.8, hemoglobin was 11, hematocrit 37, platelet count 300,000, sodium 140, potassium 4.6, chloride 105, bicarbonate 26, BUN 32, creatinine 1.56, glucose 97, calcium 8.4, total CK 108, CK-MB fraction 1.3, troponin less than 0.02, triglycerides 263, total cholesterol 230, LDL 141, non-HDL 194, total HDL 36, cholesterol is 6.388 per HDL ratio. IMAGING STUDIES: On 04/15/2020: CT of the head: No acute intracranial hemorrhage, mass or midline shift, involutional changes of the brain in keeping with patient's age with findings of chronic microvascular ischemic changes, consider acute bacterial sinusitis. Chest x-ray: Apparent right pneumothorax, confirm with chest CT. Chest CT: No pneumothorax. Multiple metastatic lesions with non-calcified bilateral pulmonary nodules. Heterogenous liver with large right hepatic mass, atelectasis. Carotid Dopplers; No hemodynamically significant narrowing or stenosis appreciated bilaterally. Hand x-ray: No radiopaque foreign bodies in the field of view of the left hand. CT of the abdomen and pelvis on 04/16/2020: Innumerable metastatic appearing pulmonary nodules with underlying chronic emphysema, hepatomegaly with right lobe hepatic mass diverticulosis. Time spent on discharge: 30 minutes. MTDD
[2020-04-16] MEDS ORDERED: BACITAB PO (12:03)
[2020-04-16] MEDS ORDERED: AMOX500C PO (12:03)
--- NOTE | 2020-04-16 13:36 | REP ---
INDICATION: LIVER MASSES. COMPARISON: Comparison is made with CT study of the abdomen and pelvis from 16 April 2020.. TECHNIQUE: Right upper quadrant sonography. FINDINGS: Scanning through the right upper quadrant of the abdomen demonstrates a large solid heterogeneous almost isoechoic mass in the liver measuring 20.0 x 13.3 x 11.4 cm. It appears to be hypervascular on Doppler. It has a central scar like morphology on some images. No other liver mass lesion is seen. Limited views of pancreas show no abnormality. The gallbladder shows no evidence of stone or polyp. Common bile duct is dilated measuring 1.2 cm in diameter. There is no evidence of ascites. No right renal abnormality is noted. The right kidney measures 10.6 x 4.7 x 6.4 cm. IMPRESSION: 20 cm solid slightly hypervascular appearing mass in the liver right hepatic lobe as seen on CT. Somewhat dilated common bile duct. No evidence of gallstone. Pancreas is largely obscured by abdominal gas.. <Electronically signed by Ronni Ortega > 04/16/20 [id number]
--- NOTE | 2020-04-16 16:07 | REPVR ---
PROCEDURE INFORMATION: Exam: MR Angiogram Head Without Contrast, Arteries Exam date and time: 04/16/2020 3:45 PM Age: 79 years old Clinical indication: Speech disturbance and weakness; Slurred speech; Additional info: TIA TECHNIQUE: Imaging protocol: MR angiogram head without contrast. Exam focused on the arteries. COMPARISON: CT Head without contrast 04/15/2020 11:19 PM FINDINGS: ANTERIOR CIRCULATION: Right internal carotid artery: Intracranial segment is patent with no significant stenosis. No aneurysm. Right middle cerebral artery: No occlusion or significant stenosis. No aneurysm. Right anterior cerebral artery: No occlusion or significant stenosis. No aneurysm. Left internal carotid artery: Intracranial segment is patent with no significant stenosis. No aneurysm. Left middle cerebral artery: No occlusion or significant stenosis. No aneurysm. Left anterior cerebral artery: No occlusion or significant stenosis. No aneurysm. POSTERIOR CIRCULATION: Right vertebral artery: No occlusion or significant stenosis. No aneurysm. Left vertebral artery: No occlusion or significant stenosis. No aneurysm. Basilar artery: No occlusion or significant stenosis. No aneurysm. Right posterior cerebral artery: There is moderate focal stenosis of the right P2 segment. Left posterior cerebral artery: No occlusion or significant stenosis. No aneurysm. IMPRESSION: No acute abnormality. Electronically signed by: Thomas Moss On 04/16/2020 16:07:35 PM
--- NOTE | 2020-04-16 16:12 | REPVR ---
PROCEDURE INFORMATION: Exam: MR Head Without Contrast Exam date and time: 04/16/2020 3:55 PM Age: 79 years old Clinical indication: Dizziness and speech disturbance and walking, difficulty; Additional info: TIA. Only perform if left hand x ray showed no metal implant TECHNIQUE: Imaging protocol: MR of the head without contrast. COMPARISON: CT Head without contrast 04/15/2020 11:19 PM FINDINGS: Brain: No restricted diffusion is seen to suggest acute infarction. There is no acute intracranial hemorrhage, cerebral edema, or midline shift. Age-related cerebral and cerebellar substance loss is present. Scattered increased T2 and FLAIR signal within the periventricular and subcortical white matter is present. This is nonspecific but likely related to chronic microangiopathic ischemic change. Numerous small foci of susceptibility artifact on the gradient echo weighted sequence are noted within the cerebral and cerebellar hemispheres, as well as the brainstem. The findings are compatible with amyloid angiopathy and/or chronic hypertensive microbleeds. Cerebral ventricles: Moderate ex vacuo dilation of the lateral and third ventricles is noted. Bones/joints: Unremarkable. Paranasal sinuses: Trace fluid is present in the right maxillary sinus. Mastoid air cells: Normal as visualized. No mastoid effusion. Orbital cavity: Unremarkable. Soft tissues: Unremarkable. IMPRESSION: 1. No acute intracranial abnormality. 2. Chronic findings as discussed above. Electronically signed by: Thomas Moss On 04/16/2020 16:12:37 PM
--- NOTE | 2020-04-16 16:19 | REPVR ---
PROCEDURE INFORMATION: Exam: MR Angiography Neck Without Contrast Exam date and time: 04/16/2020 3:45 PM Age: 79 years old Clinical indication: Dizziness and giddiness and speech disturbance and weakness; Slurred speech; Additional info: TIA TECHNIQUE: Imaging protocol: Magnetic resonance angiography of the neck without contrast. COMPARISON: US Duplex,carotid (complete) 04/16/2020 7:22 AM FINDINGS: Limitations: The study is moderately limited due to patient motion artifact. Right common carotid artery: No stenosis. No dissection or occlusion. Right internal carotid artery: There is minor atherosclerotic plaque at the right carotid bifurcation. There is less than 25% stenosis of the right internal carotid artery origin. Right external carotid artery: Mild stenosis is present. No dissection or occlusion of the origin. Right vertebral artery: No stenosis. No dissection or occlusion. Left common carotid artery: No stenosis. No dissection or occlusion. Left internal carotid artery: Mild atherosclerotic plaque is present at the left carotid bifurcation. There is less than 25% stenosis of the left internal carotid artery origin. Left external carotid artery: No stenosis. No dissection or occlusion of the origin. Left vertebral artery: The origin of the left vertebral artery is obscured by motion artifact. The remaining left internal carotid artery is patent. IMPRESSION: 1. No acute abnormality. 2. Chronic findings as discussed above. REFERENCES: NASCET CRITERIA. The degree of internal carotid artery stenosis is based on NASCET criteria. Normal is no stenosis. Mild is less than 50% stenosis. Moderate is 50-69% stenosis. Severe is 70% to 99% stenosis. Total occlusion is no detectable patent lumen. Electronically signed by: Thomas Moss On 04/16/2020 16:19:16 PM
--- NOTE | 2020-04-17 15:43 | ECGEPIP ---
[facility] - ED Test Date: 2020-04-16 Pat Name: AMRIT GALVEZ Department: Room: [place] [address] Gender: Male [employer] Grade Teacher: : 1940 Requested By: JANELLE Oliveira Order Number: [id number] Reading MD: Goran White Measurements Intervals Evans Rate: 90 P: 50 WV: 140 QRS: -39 QRSD: 126 T: 3 QT: 380 QTc: 464 Interpretive Statements Normal sinus rhythm Left axis deviation Right bundle branch block NO PRIORS FOR COMPARISON Electronically Signed on 04-16-2020 7:56:21 EST by Goran White
== END 2020-04-16 16:13 | disposition home or self-care (01) ==
LOC: M ED 23:12 → M ED INP 23:13 → M MSPAV 04-16 09:05
PROVIDERS: ADMIT Internal Medicine; ATTEND Internal Medicine
DX: K76.89 Other specified diseases of liver (principal); C78.00 Secondary malignant neoplasm of unspecified lung; R53.1 Weakness; Z86.73 Personal history of transient ischemic attack (TIA), and cerebral infarction without residual deficits; I10 Essential (primary) hypertension; J32.9 Chronic sinusitis, unspecified; J43.9 Emphysema, unspecified; K57.90 Diverticulosis of intestine, part unspecified, without perforation or abscess without bleeding; D63.8 Anemia in other chronic diseases classified elsewhere; E78.1 Pure hyperglyceridemia; E87.1 Hypo-osmolality and hyponatremia; Z87.891 Personal history of nicotine dependence; N17.9 Acute kidney failure, unspecified; N18.9 Chronic kidney disease, unspecified; Z79.899 Other long term (current) drug therapy; R29.818 Other symptoms and signs involving the nervous system
CPT/HCPCS: 36415; 70450; 70544; 70547; 70551; 71045; 71250; 73120; 74176; 76705; 80048; 80061; 82550; 82553; 83036; 84484; 85025; 85610; 85730; 87631; 92610; 93005; 93041; 93880; 94760; 96360; 96361; 97161; 99285; G0378